=== PATIENT | male | born 1970 | race Asian ===

== ENCOUNTER 2024-02-03 00:26 | Inpatient (IN) | payer OTHER, SELFPAY ==
[2024-02-03] VITALS (19 sets, daily range): BP systolic 91–178; BP diastolic 43–81; PULSE 74–113; RESP 14–20; TEMP 36.2–37.2; O2SAT 85–100; BMI 30.2
--- NOTE | ~2024-02-03 | CT_ITS ---
CT of the Abdomen and Pelvis: Indication: Rectal pain, leukocytosis Technique: 2.5 mm axial scans were obtained through the abdomen and pelvis following intravenous adm inistration of 100 cc of Omnipaque 350. Dose reduction technique was used on this scan by utilizing a utomated exposure control and iterative reconstruction technique. The dose-length product (DLP) was 5 53.10 mGy-cm. Findings: Scans through the lung bases are unremarkable. The liver, spleen, pancreas, gallbladder, adrenals and kidneys are within normal limits. There are at herosclerotic calcifications of the aorta. No lymphadenopathy. No bowel obstruction or bowel wall thickening. There is no evidence to suggest acute appendicitis. Images through the pelvis were performed. Urinary bladder unremarkable. Prostate gland and seminal ve sicles are unremarkable. There is a large left-sided perirectal/perianal abscess extending into left ischial rectal fossa, wit h peripheral enhancing wall, measuring 8.0 x 5.9 x 8.0 cm (axial image 161, coronal image 93 for exam ple). There is extension of the abscess posterior inferiorly into the right perirectal/perianal regio n, with the right-sided small component measuring approximately 3.6 cm in diameter (axial image 177). Abscess appears to involve the wall of the distal rectum/anus, especially on the left side. Impression: Large perirectal/perianal abscess, as detailed above, more extensive on the left side, but with addit ional extension to the right side as well. Reviewed, dictated and finalized at [facility]. Impression: Large perirectal/perianal abscess, as detailed above, more extensive on the lef t side, but with additional extension to the right side as well.
--- NOTE | 2024-02-03 01:39 | PC.NURSE ---
edp sonia at bedside for rectal assessment
[2024-02-03 01:57] LABS: Basophils Absolute Auto 0.1 K/mm3 (0.0-0.1); Basophils Percent Auto 0.4 % (0.2-1.2); Eosinophils Percent Auto 0.1 % (0-4.4); Hematocrit 39.9 % (42.0-52.0); Hemoglobin 14.4 g/dL (14.0-18.0); Immature Granulocyte Absolute 0.14 K/mm3 (0.00-0.031); Immature Granulocyte Percent A 0.8 % (0-0.5); Lymphocytes Absolute Auto 1.09 K/mm3 (0.9-3.2); Mean Corpuscular HGB Conc 36.1 g/dl (32-36); Mean Corpuscular Hemoglobin 32.6 pg (26-34); Mean Corpuscular Volume 90.3 fl (80-100); Mean Platelet Volume 9.2 fl (7.4-10.4); Monocytes Absolute Auto 1.4 K/mm3 (0.1-0.6); Monocytes Percent Auto 7.7 % (2.6-8.5); Neutrophils Absolute Auto 15.4 K/mm3 (1.3-6.7); Platelet Count Result 319 k/mm3 (150-375); Red Blood Count 4.42 M/mm3 (4.6-6.20); Red Cell Distribution Width 11.3 % (11.5-14.5); White Blood Count 18.1 K/mm3 (4.5-10.0)
--- NOTE | 2024-02-03 02:00 | ED.GENADULT ---
HPI - General Adult General Chief complaint: Unspecified <DARYL Ward Last Filed: 02/05/24 09:15> Stated complaint: rectal pain <DARYL Ward Last Filed: 02/05/24 09:15> Time Seen by Provider: 02/03/24 01:33 <DARYL Ward Last Filed: 02/05/24 09:15> Source: patient <DARYL Ward Last Filed: 02/05/24 09:15> Mode of arrival: ambulatory <DARYL Ward Last Filed: 02/05/24 09:15> Limitations: no limitations <DARYL Ward Last Filed: 02/05/24 09:15> History of Present Illness HPI narrative: This is a 53 year old male that presents to the ER for rectal pain. Reports this has been ongoing over the last 5 days. He was seen at urgent care and started on medication for this without relief. Reports he believes he was started on antibiotics, but is unsure what antibiotic. Reports difficulty urinating and chills. Denies fever, vomiting, diarrhea, hematochezia, melena. <DARYL Ward Last Filed: 02/05/24 09:15> Related Data Home medications: Home Medications Medication Instructions Recorded Confirmed No Home Medications 02/03/24 02/03/24 <DARYL Ward Last Filed: 02/05/24 09:15> Allergies/adverse reactions: Allergies Allergy/AdvReac Type Severity Reaction Status Date / Time No Known Allergies Allergy Verified 02/03/24 11:04 <DARYL Ward Last Filed: 02/05/24 09:15> Review of Systems Review of Systems: CONSTITUTIONAL: Reports chills GASTROINTESTINAL: Denies abdominal pain, nausea, vomiting, or diarrhea. GENITOURINARY: Reports dysuria. Denies hematuria. <DARYL Ward Last Filed: 02/05/24 09:15> All systems reviewed & are unremarkable except as noted in HPI and below <DARYL Ward Last Filed: 02/05/24 09:15> [facility] Past Medical History Medical History: Medical History Alcohol abuse Tobacco abuse <Kasie Altamirano PA-C - Last Filed: 02/05/24 09:15> Surgical History Surgical History: Surgical History History of cardiac radiofrequency ablation (RFA) at age 16 <Kasie Altamirano PA-C - Last Filed: 02/05/24 09:15> Family History Family History: Family History Other Unknown family medical history <DARYL Ward Last Filed: 02/05/24 09:15> Social History Social History: Social History Smoking packs per day: 1 Smoking cigarettes per day: 20.0 Years smoked: 40 Smoking pack-years: 40.00 Smoking status: Current every day smoker Tobacco type: cigarettes Alcohol intake: current Drinks per week: 70 Substance use: never Substance use type: does not use Last use: 02/02/24 Do You Feel Safe in your Home?: Yes Lack of Transportation: No Lack of Food: Never True Current Housing: I Have Housing Concerned About Future Housing: No Difficulty Paying Gas/Electric Bills: No Difficulty Paying for Meds: No Currently Unemployed: No Education: Bachelor's Degree Difficulty w/ Childcare or Family Care: No Spiritual care concerns: No <DARYL Ward Last Filed: 02/05/24 09:15> Exam Narrative: GENERAL: Well-appearing, well-nourished, and in no acute distress. HEAD: Normocephalic, atraumatic. EYES: EOMI. CHEST: No respiratory distress. HEART: Regular rate ABDOMEN: Soft, nontender, nondistended, normal active bowel sounds. EXTREMITIES: Normal range of motion. No edema. SKIN: Warm, dry, no rash. NEURO: No focal deficits. Alert and oriented x3. PSYCH: Normal mood and affect RECTAL: No obvious fissures or hemorrhoids. No obvious fluctuance to suggest abscess. Induration of the buttock <Kasie Altamirano PA-C - Last Filed: 02/05/24 09:15> Course [facility]
[2024-02-03 02:09] LABS: Alanine Aminotransferase 13 U/L (6-50); Albumin Level 3.6 g/dL (3.5-5.1); Alkaline Phosphatase 91 U/L (38-126); Anion Gap 11 mmol/L (4-12); Aspartate Amino Transferase 15 U/L (17-59); Bilirubin,Total 0.7 mg/dL (0.2-1.3); Blood Urea Nitrogen 7 mg/dL (9-20); Calcium 8.7 mg/dL (8.4-10.2); Carbon Dioxide 21 mmol/L (22-30); Chloride 85 mmol/L (98-107); Estimated CRCL calculation 121 ml/min; Estimated Glomerular Filt Rate > 60; Glucose 118 mg/dL (65-110); Potassium 3.8 mmol/L (3.4-5.0); Sodium 117 mmol/L (137-145)
[2024-02-03] MEDS: SODIUM CHLORIDE 0.9% IV 1,000 ML 999 ML IV CONT (02:16)
[2024-02-03 02:25] LABS: Add Urine Microscopic? NO; Appearance Urine Clear (Clear); Bilirubin Urine Negative (Negative); Blood Urine Negative (Negative); Color Urine Yellow (Yellow); Glucose Urine UA Negative (Negative); Ketones Urine Negative (Negative); Leukocyte Esterase Ur Negative LEU/UL (Negative); Nitrate Urine Negative (Negative); Protein Urine Negative (Negative); Specific Grav Ur 1.007 (1.001-1.035); pH Urine 5.5 (5.0-9.0)
--- NOTE | 2024-02-03 03:20 | PC.NURSE ---
blood cultures x 2, rainbow sent to lab via tube station. Carlos label inside blue biobag with blood cultures.
[2024-02-03] MEDS: metroNIDAZOLE 500 MG/ISO 100ML 500 MG/100 ML BAG 100 MG IVPB (03:23)
[2024-02-03 03:38] LABS: Lactic Acid Reflex 1.1 mmol/L (0.7-2.0)
[2024-02-03 03:46] LABS: Anion Gap 13 mmol/L (4-12); Blood Urea Nitrogen 7 mg/dL (9-20); Calcium 8.3 mg/dL (8.4-10.2); Carbon Dioxide 21 mmol/L (22-30); Chloride 86 mmol/L (98-107); Estimated CRCL calculation 105 ml/min; Estimated Glomerular Filt Rate > 60; Glucose 97 mg/dL (65-110); Potassium 3.6 mmol/L (3.4-5.0); Sodium 120 mmol/L (137-145)
[2024-02-03 03:47] LABS: CRP 7.2 mg/dL (<1.0)
[2024-02-03] MEDS: VANCOMYCIN 1,500 MG/NS 500 ML 1,500 MG/500 ML BAG 250 MG IVPB (05:08)
[2024-02-03] MEDS: SODIUM CHLORIDE 0.9% IV 2,000 ML 999 ML IV CONT (05:10)
[2024-02-03 05:14] LABS: Erythrocyte Sedimentation Rate 24 mm/hr (0-20)
[2024-02-03] MEDS: HYDROmorphone HCL INJ (*CRX) 1 MG/ML SYR 0.5 MG IV PUSH (07:24)
[2024-02-03] MEDS: PIPERACILLN/TAZ 3.375GM/NS50ML 3.375 GM/50 ML BAG IVPB ×4 (07:27→23:29)
[2024-02-03] MEDS: IBUPROFEN IV 800 MG/200 ML 800 MG/200 ML BAG 400 MG IVPB (07:35)
--- NOTE | 2024-02-03 07:50 | ADMGEN ---
This patient, Jose Zavala, was admitted to [facility] Surg Room 314-02. Patient/family oriented to hospital policies and general routines including ID bracelet, bed and alarms, visiting hours, pain management, procedures, bathroom and other care routines, personal items, smoking policy, room service/diet, and visiting hours. Information on how to activate the Rapid Response Team has been discussed. Patient/Family are encouraged to report perceived risks to care and to ask questions if they do not understand what they are told or what they should do.
[2024-02-03] MEDS: LACTATED RINGERS 1,000 ML 125 ML IV CONT (08:34)
[2024-02-03 09:38] LABS: Anion Gap 9 mmol/L (4-12); Blood Urea Nitrogen 6 mg/dL (9-20); Calcium 7.7 mg/dL (8.4-10.2); Carbon Dioxide 20 mmol/L (22-30); Chloride 99 mmol/L (98-107); Estimated CRCL calculation 121 ml/min; Estimated Glomerular Filt Rate > 60; Glucose 108 mg/dL (65-110); Potassium 3.7 mmol/L (3.4-5.0); Sodium 128 mmol/L (137-145)
--- NOTE | 2024-02-03 10:35 | PC.NURSE ---
To OR per hospital bed for I&D of perirectal abscess.
--- NOTE | 2024-02-03 10:47 | WPDHPUPDATE1 ---
History and Physical Update Update Date/Time: 02/03/24 10:47 History and Physical has been reviewed, including an updated exam of the patient. There are NO changes in the patient's condition. Risks, benefits, and alternatives have been discussed and questions answered. Patient agrees to proceed with procedure.
--- NOTE | 2024-02-03 10:47 | PM.CNGS ---
Assessment and Plan Assessment and plan (1) Abscess, perirectal: Code(s): K61.1 - Rectal abscess Status: Acute Assessment and Plan: CT reviewed and showed a large perirectal abscess that is more extensive on the left but also extends to the right. CT also suggests that it may involve the wall of the distal rectum on the left. He continues to have a significant amount of rectal pain and pressure, and he is not having any spontaneous drainage. We would recommend proceeding with incision and drainage of perirectal abscess in the OR, which will be done by Dr. Newman today. Description of the procedure, risks, benefits, alternatives, and expected recovery were discussed with the patient. He agrees to proceed. Will keep him NPO with IV fluids, and continue IV antibiotics. (2) Sepsis: Code(s): A41.9 - Sepsis, unspecified organism Status: Acute Assessment and Plan: Presented with leukocytosis and tachycardia in the setting of a large perirectal abscess. Blood cultures pending. Lactic acid normal. Tachycardia resolved with fluid resuscitation. Will proceed to the OR for I&D today. Continue IV antibiotics. (3) Hyponatremia: Code(s): E87.1 - Hypo-osmolality and hyponatremia Status: Acute Assessment and Plan: Sodium 117 on admission and improving with IV fluids. Sodium up to 128 this morning. His hyponatremia could be related to his high water intake over the past few days. His chronic alcohol use could also play a role. No previous labs for comparison. Management per Hospitalist. (4) Alcohol abuse: Code(s): F10.10 - Alcohol abuse, uncomplicated Status: Acute Assessment and Plan: Daily alcohol use for many years. Reports 10 beers daily. Management per Hospitalist, [facility]. (5) Tobacco abuse: Code(s): Z72.0 - Tobacco use Status: Acute Assessment and Plan: Encouraged cessation. Plan I have discussed the patient's case and plan of care with Dr. Newman. Thank you for allowing us to see the patient in consultation and we will continue to follow along with you. History of Present Illness Consult details Consult date: 02/03/24 Reason for consult: other (Perirectal abscess) Requesting physician: Augusto Dinero MD Narrative: This is a 53-year-old man who presented to the ED overnight with complaints of rectal pain. He has a history of hemorrhoids and initially noticed mild anal itching last that he thought was related to possible hemorrhoids. Over the next few days, he developed rectal pain that progressively became worse and prompted evaluation in an urgent care over the weekend. He was started on an antibiotic and reports taking this as prescribed. He denies any relief of his symptoms, and actually felt the swelling and pain became worse over the next few days. He then decided to come into the ED last night due to his persistent symptoms. Labs showed a white blood cell count 16600, sodium 117, potassium 3.8, chloride 85, carbon dioxide 21, CRP 7.2. Lactic acid 1.1. CT scan of the abdomen and pelvis showed a large perirectal/perianal abscess measuring 8 x 5.9 x 8 cm, which is more extensive on the left side but with additional extension to the right side as well. He was admitted to the hospitalist service. He had received 3 L of normal saline since admission. Labs have been repeated and his sodium is up to 128 this morning. He was started on IV Zosyn and vancomycin. The patient denies any history of perirectal abscesses, inflammatory bowel disease, or previous colonoscopies. He denies any recent rectal drainage. His bowels have been moving normally up until the past few days he has felt constipated. His last bowel movement was 2-3 days ago. He reports flatus. He also endorses a poor appetite over the past few days and has been drinking a significant amount of water and Gatorade. He states he has had urinary hesitancy due to the rectal pain and pressure,
--- NOTE | 2024-02-03 11:57 | WPDANESEPPF ---
Anes - Initial Pre Proc Eval Procedure: Operation Date: 02/03/24 16:00 Proposed Procedures p Incision and Drainage Celine-Rectal Abscess - Saúl Newman DO Date/Time: 02/03/24 11:57 Surgeon: Melany Harrell DO Pre Op Diagnosis: PERIRECTAL ABSCESS Patient Data Age: 53 Gender: M Height: 1.68 m Weight: 85.1 kg Last Vital Signs Temp 97.7 F 02/03/24 11:06 Pulse 91 02/03/24 11:06 Resp 16 02/03/24 11:06 BP 118/59 L 02/03/24 11:06 Pulse Ox 98 02/03/24 11:06 O2 Del Method Room Air 02/03/24 08:00 Allergies Allergy/AdvReac Type Severity Reaction Status Date / Time No Known Allergies Allergy Verified 02/03/24 11:04 Home Medications Medication Instructions Recorded Confirmed Type No Home Medications 02/03/24 02/03/24 History Laboratory Tests 02/03/24 02/03/24 02/03/24 01:49 02:16 03:16 WBC 18.1 H K/mm3 (4.5-10.0) RBC 4.42 L M/mm3 (4.6-6.20) Hgb 14.4 g/dL (14.0-18.0) Hct 39.9 L % (42.0-52.0) MCV 90.3 fl (80-100) MCH 32.6 pg (26-34) MCHC 36.1 H g/dl (32-36) RDW 11.3 L % (11.5-14.5) Plt Count 319 k/mm3 (150-375) MPV 9.2 fl (7.4-10.4) Immature Gran % (Auto) 0.8 H % (0-0.5) Neut % (Auto) 85.0 H % (45.5-73.1) Lymph % (Auto) 6.0 L % (18.3-44.2) [place] % (Auto) 7.7 % (2.6-8.5) Eos % (Auto) 0.1 % (0-4.4) Baso % (Auto) 0.4 % (0.2-1.2) Lymph # (Auto) 1.09 K/mm3 (0.9-3.2) [place] # (Auto) 1.4 H K/mm3 (0.1-0.6) Eos # (Auto) 0.0 K/mm3 (0-0.3) Baso # (Auto) 0.1 K/mm3 (0.0-0.1) Abs Immat Gran (auto) 0.14 H K/mm3 (0.00-0.031) Absolute Neuts (auto) 15.4 H K/mm3 (1.3-6.7) Absolute Nucleated RBC 0.000 K/mm3 (0.0-0.012) Nucleated RBC % 0.0 % (0.0-0.2) ESR 24 H mm/hr (0-20) Sodium 117 L* mmol/L 120 L mmol/L (137-145) (137-145) Potassium 3.8 mmol/L 3.6 mmol/L (3.4-5.0) (3.4-5.0) Chloride 85 L mmol/L 86 L mmol/L (98-107) (98-107) Carbon Dioxide 21 L mmol/L 21 L mmol/L (22-30) (22-30) Anion Gap 11 mmol/L 13 H mmol/L (4-12) (4-12) BUN 7 L mg/dL 7 L mg/dL (9-20) (9-20) Creatinine 0.60 L mg/dL 0.70 mg/dL (0.7-1.3) (0.7-1.3) Estim Creat Clear Calc 121 ml/min 105 ml/min Estimated GFR > 60 > 60 (59 - ) (59 - ) Glucose 118 H mg/dL 97 mg/dL (65-110) (65-110) Lactic Acid 1.1 mmol/L (0.7-2.0) Calcium 8.7 mg/dL 8.3 L mg/dL (8.4-10.2) (8.4-10.2) Total Bilirubin 0.7 mg/dL (0.2-1.3) AST 15 L U/L (17-59) ALT 13 U/L (6-50) Alkaline Phosphatase 91 U/L (38-126) C-Reactive Protein 7.2 H mg/dL (<1.0) Total Protein 8.0 g/dL (6.3-8.2) Albumin 3.6 g/dL (3.5-5.1) Urine Color Yellow (Yellow) Urine Appearance Clear (Clear) Urine pH 5.5 (5.0-9.0) Ur Specific [place] 1.007 (1.001-1.035) Urine Protein Negative mg/dL (Negative) Urine Glucose (UA) Negative mg/dL (Negative) Urine Ketones Negative mg/dL (Negative) Ur Blood (Man) Negative (Negative) Urine Nitrate Negative (Negative) Urine Bilirubin Negative (Negative) Urine Urobilinogen 1.0 mg/dL (<2.0) Leukocyte Esterase Rfl Negative ANH/UL (Negative) 02/03/24 09:03 WBC RBC Hgb Hct MCV MCH MCHC RDW Plt Count MPV Immature Gran % (Auto) Neut % (Auto) Lymph % (Auto) [place] % (Auto) Eos % (Auto) Baso % (Auto) Lymph # (Auto) [place] # (Auto) Eos # (Auto) Baso # (Auto) Abs Immat Gran (auto)
[2024-02-03] MEDS: LACTATED RINGERS 1,000 ML 30 ML IV CONT (12:18)
[2024-02-03] MEDS: BUPIVACAINE/EPINEPHRINE 0.5% 10 ML VIAL 30 ML INFILTRATE (12:26)
--- NOTE | 2024-02-03 12:50 | W.PM.PROC2 ---
Procedure Note - Detailed Date of Procedure 02/03/24 Pre-op Diagnosis PERIRECTAL ABSCESS Post-op Diagnosis Same Procedure Performed Incision and drainage of complex perirectal abscess Surgeon Saúl Newman, DO Anesthesia General and Local (0.5% bupivacaine with epinephrine) Indications This is a 53-year-old man who presented with perirectal pain and swelling that started about 6 days ago. He stated that it felt like a hemorrhoid with just some itching and burning at 1st, but then began experiencing more swelling and pain. He denied any rectal drainage or bleeding. He denies any fevers. In the emergency department he was found to have a large left perirectal abscess extending to the right posterior region as well. He was admitted for further treatment and placed on broad-spectrum IV antibiotics. Discussions were made with the patient about treatment options and decision was made to proceed with incision and drainage of perirectal abscess. Findings The patient had a complex left perirectal abscess extending into the right posterior region as well. The abscess cavity was about 4 cm deep to the skin but there was a large cavity extending along the left perirectal region. There were multiple loculations around this area and also tracked posterior to the rectum along to the right posterior region. The abscess cavity tracked about 10-12 cm deep. Once the abscess cavity was completely drained, I then irrigated the area with sterile saline. I then placed a Bunny drain going from the right posterior region to the left side. I then also packed the abscess cavity with about 3 ft of 1 in iodoform gauze. Description of Procedure Procedure as well as risks, benefits, and alternatives were discussed with the patient. Written consent was obtained and placed in chart prior to procedure. Patient was brought back to surgical suite. He was placed supine on operating table. Time-out was done to confirm patient and procedure. He was then placed in dorsal lithotomy position. He was intubated by the anesthesia department. His perirectal area was prepped and draped in sterile fashion using Betadine prep. 0.5% bupivacaine with epinephrine was infiltrated locally over the area of left perirectal swelling. A 3 cm incision was then made in the left perirectal region about 4 cm from the anal verge using a 15 blade scalpel. Electrocautery was used for hemostasis. A curved hemostat was then used to gently dissect within the subcutaneous space until I reached the abscess cavity. The abscess cavity was then entered using blunt dissection with the curved hemostat. Copious amounts of purulence drainage came running out. Loculations were then broken up using blunt dissection with my finger and suction. The cavity was then probed for any further tracking. I identified an area tracking to the right posterior location. 0.5% bupivacaine with epinephrine was infiltrated over this area and then a 2 cm incision was made directly over this region using a 15 blade scalpel. Electrocautery was used for hemostasis. Blunt dissection with curved hemostat was then used to enter into the abscess cavity in this location. The 2 cavities met posterior to the rectum. Decision was made to place a [place] drain between the 2 abscess cavities. A [place] drain was placed and secured on each side using 3-0 nylon simple interrupted sutures. The abscess cavity was then irrigated with sterile saline. No further abnormalities were noted. The left abscess cavity was then packed with 1 in iodoform gauze. Fluff gauze, ABD pad, and mesh underwear were then applied. The patient was then awakened from anesthesia, extubated, and transferred to recovery. Estimated Blood Loss 20 Drains Yes (Bunny drain) Packing Yes (1 in iodoform gauze) Complications No immediate complications Condition Stable Disposition Floor [facility] Billing Surgery - Charge Forward: Surgery Billing
[2024-02-03] MEDS: LACTATED RINGERS 1,000 ML 100 ML IV CONT (14:10)
--- NOTE | 2024-02-03 14:10 | PC.NURSE ---
Returned to room per hospital bed from OR.
--- NOTE | 2024-02-03 16:44 | PM.IMHP ---
H&P: HPI History of Present Illness Date/Time: 02/03/24 16:44 Chief Complaint: rectal pain and swelling Narrative: 53 yo male with no significant past medical history presented to ED on account of rectal pain and swelling. Patient reported he was in his usual state of health until about 6 days presentation when he started having rectal pain accompanied with swelling, went to urgent care on Thursday and was given some antibiotics however symptoms continued unabated forcing him to present to ER for further evaluation and care. Denies any fever, no vomiting , had noted diarrhea daily days which has resolved since the past 2 days, no SOB, no chest pain. ER evaluation notable for WBC 18.1, Na 120, Cr 0.6, CT AP showed large perirectal/perianal abscess. Patient has already undergone I and D at the time of this recording. Review of Systems Review of Systems: Ulna systems reviewed and negative except as noted in HPI above. [facility] Past Medical History Medical History Alcohol abuse Tobacco abuse Surgical History Surgical History History of cardiac radiofrequency ablation (RFA) at age 16 Family History Family History Other Unknown family medical history Social History Social History Smoking packs per day: 1 Smoking cigarettes per day: 20.0 Years smoked: 40 Smoking pack-years: 40.00 Smoking status: Current every day smoker Tobacco type: cigarettes Alcohol intake: current Drinks per week: 70 Substance use: never Substance use type: does not use Last use: 02/02/24 Do You Feel Safe in your Home?: Yes Lack of Transportation: No Lack of Food: Never True Current Housing: I Have Housing Concerned About Future Housing: No Difficulty Paying Gas/Electric Bills: No Difficulty Paying for Meds: No Currently Unemployed: No Education: Bachelor's Degree Difficulty w/ Childcare or Family Care: No Spiritual care concerns: No Meds Home Medications and Allergies Home Medications Medication Instructions Recorded Confirmed Type No Home Medications 02/03/24 02/03/24 History Allergies Allergy/AdvReac Type Severity Reaction Status Date / Time No Known Allergies Allergy Verified 02/03/24 11:04 Vital Signs Vital Signs - 24 hr 02/03/24 00:30 02/03/24 03:53 02/03/24 07:31 Temperature 98.9 F 98.9 F 98.2 F Pulse Rate 113 H 91 97 Respiratory Rate 20 18 16 Blood Pressure 178/77 H 151/81 H 153/78 H Pulse Oximetry 98 100 97 Oxygen Delivery Room Air Oxygen Flow Rate 02/03/24 08:00 02/03/24 11:06 02/03/24 12:54 Temperature 97.7 F 98.4 F Pulse Rate 91 85 Respiratory Rate 16 15 Blood Pressure 118/59 L 91/51 L Pulse Oximetry 98 98 Oxygen Delivery Room Air Simple Face Mask Oxygen Flow Rate 8 02/03/24 13:14 02/03/24 13:10 02/03/24 12:06 Temperature 98.3 F Pulse Rate 85 81 93 Respiratory Rate 16 18 18 Blood Pressure 112/61 112/61 104/57 L Pulse Oximetry 100 100 85 L Oxygen Delivery Simple Face Mask Simple Face Mask Oxygen Flow Rate 8 8 02/03/24 13:25 02/03/24 13:40 02/03/24 13:55 Temperature Pulse Rate 81 83 77 Respiratory Rate 18 15 14 Blood Pressure 130/66 120/70 131/68 Pulse Oximetry 100 98 98 Oxygen Delivery Simple Face Mask Room Air Room Air Oxygen Flow Rate 8 02/03/24 14:10 02/03/24 14:04 02/03/24 14:19 Temperature 97.6 F 98.0 F Pulse Rate 74 80 Respiratory Rate 18 18 Blood Pressure 131/68 138/65 121/43 L Pulse Oximetry 98 91 Oxygen Delivery Oxygen Flow Rate 02/03/24 14:49 02/03/24 15:28 Temperature 98.0 F 98.0 F Pulse Rate 89 88 Respiratory Rate 18 18 Blood Pressure 121/44 L 121/44 L Pulse Oximetry 88 L 98 Oxygen Delivery Oxygen Flow Rate Exam Narrative: General:
[2024-02-03] MEDS: IBUPROFEN 600 MG TABLET PO (20:40)
[2024-02-03 23:47] LABS: Glucose Point of Care 112 mg/dl (65-105)
[2024-02-04] VITALS (8 sets, daily range): BP systolic 110–144; BP diastolic 62–79; PULSE 70–84; RESP 16–18; TEMP 36.2–36.8; O2SAT 97–100
[2024-02-04] MEDS: IBUPROFEN 600 MG TABLET PO ×2 (05:12→15:40)
[2024-02-04] MEDS: PIPERACILLN/TAZ 3.375GM/NS50ML 3.375 GM/50 ML BAG IVPB ×3 (05:14→17:36)
[2024-02-04 06:35] LABS: Basophils Percent Auto 0.2 % (0.2-1.2); Eosinophils Percent Auto 0.1 % (0-4.4); Hematocrit 36.3 % (42.0-52.0); Hemoglobin 12.3 g/dL (14.0-18.0); Immature Granulocyte Absolute 0.23 K/mm3 (0.00-0.031); Immature Granulocyte Percent A 1.4 % (0-0.5); Lymphocytes Absolute Auto 1.48 K/mm3 (0.9-3.2); Lymphocytes Percent Auto 9.2 % (18.3-44.2); Mean Corpuscular HGB Conc 33.9 g/dl (32-36); Mean Corpuscular Hemoglobin 32.4 pg (26-34); Mean Corpuscular Volume 95.5 fl (80-100); Mean Platelet Volume 9.6 fl (7.4-10.4); Monocytes Absolute Auto 1.1 K/mm3 (0.1-0.6); Neutrophils Absolute Auto 13.2 K/mm3 (1.3-6.7); Neutrophils Percent Auto 82.1 % (45.5-73.1); Platelet Count Result 274 k/mm3 (150-375); Red Cell Distribution Width 11.8 % (11.5-14.5); White Blood Count 16.1 K/mm3 (4.5-10.0)
[2024-02-04 06:45] LABS: Alanine Aminotransferase 10 U/L (6-50); Albumin Level 2.7 g/dL (3.5-5.1); Alkaline Phosphatase 63 U/L (38-126); Anion Gap 8 mmol/L (4-12); Aspartate Amino Transferase 16 U/L (17-59); Bilirubin,Total 0.3 mg/dL (0.2-1.3); Blood Urea Nitrogen 7 mg/dL (9-20); Calcium 8.1 mg/dL (8.4-10.2); Carbon Dioxide 23 mmol/L (22-30); Chloride 98 mmol/L (98-107); Estimated CRCL calculation 121 ml/min; Estimated Glomerular Filt Rate > 60; Glucose 101 mg/dL (65-110); Magnesium 2.3 mg/dL (1.6-2.3); Potassium 3.8 mmol/L (3.4-5.0); Sodium 129 mmol/L (137-145)
[2024-02-04 06:46] LABS: Lactic Acid Reflex 0.8 mmol/L (0.7-2.0)
--- NOTE | 2024-02-04 09:08 | P.PNAN_ITS ---
Anes - Prog Note Post-Op Date/Time: 02/04/24 09:08 Cardiovascular status: normal Respiratory status: normal Airway patency: baseline Mental status: baseline Post-Op hydration status: normal Vital Signs: Last Vital Signs Temp 97.6 F 02/04/24 07:49 Pulse 74 02/04/24 07:49 Resp 18 02/04/24 07:49 BP 141/76 H 02/04/24 07:49 Pulse Ox 99 02/04/24 07:49 O2 Del Method Room Air 02/03/24 20:00 O2 Flow Rate 8 02/03/24 13:25 Pain Score (VAS): 0/10 I/O: Intake & Output 02/03/24 02/04/24 02/04/24 23:59 07:59 15:59 Intake Total 1650 50 240 Output Total 900 Balance 1650 -850 240 Laboratory Tests 02/04/24 06:24 02/04/24 06:24 02/03/24 02/03/24 02/04/24 09:03 23:38 06:24 WBC 16.1 H RBC 3.80 L Hgb 12.3 L Hct 36.3 L MCV 95.5 D MCH 32.4 MCHC 33.9 RDW 11.8 Plt Count 274 MPV 9.6 Immature Gran % (Auto) 1.4 H Neut % (Auto) 82.1 H Lymph % (Auto) 9.2 L [place] % (Auto) 7.0 Eos % (Auto) 0.1 Baso % (Auto) 0.2 Lymph # (Auto) 1.48 [place] # (Auto) 1.1 H Eos # (Auto) 0.0 Baso # (Auto) 0.0 Abs Immat Gran (auto) 0.23 H Absolute Neuts (auto) 13.2 H Absolute Nucleated RBC 0.000 Nucleated RBC % 0.0 Sodium 128 L 129 L Potassium 3.7 3.8 Chloride 99 98 Carbon Dioxide 20 L 23 Anion Gap 9 8 BUN 6 L 7 L Creatinine 0.60 L 0.60 L Estim Creat Clear Calc 121 121 Estimated GFR > 60 > 60 Glucose 108 101 POC Capillary Glucose 112 H Lactic Acid 0.8 Calcium 7.7 L 8.1 L Magnesium 2.3 Total Bilirubin 0.3 AST 16 L ALT 10 Alkaline Phosphatase 63 Total Protein 6.0 L Albumin 2.7 L Microbiology 02/03/24 03:17 Blood Blood Culture - Preliminary 02/03/24 03:17 Blood Blood Culture - Preliminary Post-procedural complaints: none Patient Feedback: Patient satisfied with anesthetic care.
[2024-02-04] MEDS: ENOXAPARIN 40 MG/0.4 ML SYRINGE SUB-Q (09:55)
[2024-02-04] MEDS: THIAMINE HCL 200 MG/2 ML VIAL 100 MG IV PUSH (09:59)
[2024-02-04] MEDS: polyethylene glycoL 3350 17 GM POWD.PACK PO (10:00)
[2024-02-04 11:29] LABS: Glucose Point of Care 113 mg/dl (65-105)
--- NOTE | 2024-02-04 11:47 | PM.PNGS ---
Progress Note: A&P Assessment and Plan (1) Abscess, perirectal: Code(s): K61.1 - Rectal abscess Status: Acute Assessment and Plan: S/p I&D complex perirectal abscess. Pain and tenderness much improved. Continue gauze dressing changes as needed throughout the day. [place] drain in place. Continue IV antibiotics Possibly discharge home in the next 1-2 days if he continues to improve (2) Sepsis: Code(s): A41.9 - Sepsis, unspecified organism Status: Acute Assessment and Plan: Resolving s/p source control. Blood cx NGTD. Continue IV antibiotics. Plan I have discussed the patient's case and plan of care with Dr. Newman. Subjective Subjective Date/Time Seen: 02/04/24 11:47 Post Op day: 1 (Incision and drainage of complex perirectal abscess) Patient reports: feels better, pain is less, tolerating a regular diet and afebrile Interval history: Patient feels much better today. He slept well overnight. He reports his rectal pain has improved significantly and almost completely resolved. He has changed his gauze a few times overnight. Exam Const: General: comfortable and no acute distress Orientation/consciousness: patient oriented x3 GI: Other: Perirectal induration and tenderness significantly improved, packing removed from left incision, shey drain sutured into place, gauze dressing saturated with purulent drainage Objective Data Vital Signs Vital Signs: Vital Signs - 24 hr 02/03/24 12:54 02/03/24 13:14 02/03/24 13:10 Temperature 98.4 F Pulse Rate 85 85 81 Respiratory Rate 15 16 18 Blood Pressure 91/51 L 112/61 112/61 Pulse Oximetry 98 100 100 Oxygen Delivery Simple Face Mask Simple Face Mask Simple Face Mask Oxygen Flow Rate 8 8 8 02/03/24 12:06 02/03/24 13:25 02/03/24 13:40 Temperature 98.3 F Pulse Rate 93 81 83 Respiratory Rate 18 18 15 Blood Pressure 104/57 L 130/66 120/70 Pulse Oximetry 85 L 100 98 Oxygen Delivery Simple Face Mask Room Air Oxygen Flow Rate 8 02/03/24 13:55 02/03/24 14:10 02/03/24 14:04 Temperature 97.6 F Pulse Rate 77 74 Respiratory Rate 14 18 Blood Pressure 131/68 131/68 138/65 Pulse Oximetry 98 98 Oxygen Delivery Room Air Oxygen Flow Rate 02/03/24 14:19 02/03/24 14:49 02/03/24 15:28 Temperature 98.0 F 98.0 F 98.0 F Pulse Rate 80 89 88 Respiratory Rate 18 18 18 Blood Pressure 121/43 L 121/44 L 121/44 L Pulse Oximetry 91 88 L 98 Oxygen Delivery Oxygen Flow Rate 02/03/24 19:49 02/03/24 20:00 02/03/24 23:48 Temperature 98.2 F 97.1 F L Pulse Rate 90 90 84 Respiratory Rate 16 16 18 Blood Pressure 129/70 124/62 Pulse Oximetry 99 99 99 Oxygen Delivery Room Air Oxygen Flow Rate 02/04/24 00:00 02/04/24 04:55 02/04/24 04:00 Temperature 97.1 F L Pulse Rate 78 Respiratory Rate 16 Blood Pressure 124/62 134/66 134/66 Pulse Oximetry 98 Oxygen Delivery Oxygen Flow Rate 02/04/24 07:49 02/04/24 10:26 Temperature 97.6 F Pulse Rate 74 Respiratory Rate 18 Blood Pressure 141/76 H Pulse Oximetry 99 98 Oxygen Delivery Room Air Oxygen Flow Rate Intake/Output Intake/Output: Intake & Output 02/01/24 02/02/24 02/03/24 02/04/24 23:59 23:59 23:59 23:59 Intake Total 5850 290 Output Total 900 Balance 5850 -610 Meds/Results Medications: Active Medications Generic Name Dose Route Start Last Admin Trade Name Freq PRN Reason Stop Dose Admin Hydrocodone Bitart/Acetaminophen 1 tab 02/03/24 14:04 Hydrocodone/Acetaminophen (*Crx) 5-325 Mg Tablet PO Q4H PRN Pain Rated 4-6 Hydrocodone Bitart/Acetaminophen 1 tab 02/03/24 14:04 Hydrocodone/Acetaminophen (*Crx) 10-325 Mg Tablet PO Q4H PRN Pain Rated 7-10 Chlordiazepoxide HCl 25 mg 02/03/24 16:44 Chlordiazepoxide (*Crx) 25 Mg Capsule PO Q6H PRN Withdrawal Diphenhydramine HCl 25 mg 02/03/24 14:04 Diphenhydramine Hcl Inj 50 Mg/Ml Vial IV PUSH
--- NOTE | 2024-02-04 12:05 | PM.IMPN ---
Progress Note: A&P Assessment and Plan (1) Abscess, perirectal: Code(s): K61.1 - Rectal abscess Status: Acute (2) Alcohol abuse: Code(s): F10.10 - Alcohol abuse, uncomplicated Status: Acute (3) Hyponatremia: Code(s): E87.1 - Hypo-osmolality and hyponatremia Status: Acute (4) Tobacco abuse: Code(s): Z72.0 - Tobacco use Status: Acute Plan Perirectal abscess S/p I and D blood culture pending, continue Zosyn monitor closely Gen surgery following Hyponatremia Na 120, now 129 stop IVF monitor closely Alcohol abuse patient drinks 10 drinks per day [facility] protocol ordered careers counsellor about cessation tobacco use use half to 1 PPD careers counsellor about cessation DVT prophylaxis on Sq lovenox Subjective Date/time seen: 02/04/24 12:05 Interval history: comfortable at bedside Review of Systems Review of Systems: Ulna systems reviewed and negative except as noted in HPI above. Exam Narrative: General: alert and comfortable Eyes: EOMI, PERRLA ENNT External ears normal, Neck is supple, no masses, Respiratory systems: Clear to auscultation Cardiovascular S1, S2, normal rhythm, no murmur, rub, or gallop; no thrill or palpable murmurs on palpation. Gastrointestinal: soft, non-tender, and non-distended abdomen with no masses; surgical dressing on the perianal region soaked with blood. BS present Skin: no rash, lesions, ulcerations, subcutaneous nodules or induration Musculoskeletal: no abnormality and no tenderness, normal ROM Neurologic: Alert and oriented x3, non focal Mental Status Exam: normal affect Objective Data Vital Signs Vital Signs: Vital Signs - 24 hr 02/03/24 12:54 02/03/24 13:14 02/03/24 13:10 Temperature 98.4 F Pulse Rate 85 85 81 Respiratory Rate 15 16 18 Blood Pressure 91/51 L 112/61 112/61 Pulse Oximetry 98 100 100 Oxygen Delivery Simple Face Mask Simple Face Mask Simple Face Mask Oxygen Flow Rate 8 8 8 02/03/24 12:06 02/03/24 13:25 02/03/24 13:40 Temperature 98.3 F Pulse Rate 93 81 83 Respiratory Rate 18 18 15 Blood Pressure 104/57 L 130/66 120/70 Pulse Oximetry 85 L 100 98 Oxygen Delivery Simple Face Mask Room Air Oxygen Flow Rate 8 02/03/24 13:55 02/03/24 14:10 02/03/24 14:04 Temperature 97.6 F Pulse Rate 77 74 Respiratory Rate 14 18 Blood Pressure 131/68 131/68 138/65 Pulse Oximetry 98 98 Oxygen Delivery Room Air Oxygen Flow Rate 02/03/24 14:19 02/03/24 14:49 02/03/24 15:28 Temperature 98.0 F 98.0 F 98.0 F Pulse Rate 80 89 88 Respiratory Rate 18 18 18 Blood Pressure 121/43 L 121/44 L 121/44 L Pulse Oximetry 91 88 L 98 Oxygen Delivery Oxygen Flow Rate 02/03/24 19:49 02/03/24 20:00 02/03/24 23:48 Temperature 98.2 F 97.1 F L Pulse Rate 90 90 84 Respiratory Rate 16 16 18 Blood Pressure 129/70 124/62 Pulse Oximetry 99 99 99 Oxygen Delivery Room Air Oxygen Flow Rate 02/04/24 00:00 02/04/24 04:55 02/04/24 04:00 Temperature 97.1 F L Pulse Rate 78 Respiratory Rate 16 Blood Pressure 124/62 134/66 134/66 Pulse Oximetry 98 Oxygen Delivery Oxygen Flow Rate 02/04/24 07:49 02/04/24 10:26 Temperature 97.6 F Pulse Rate 74 Respiratory Rate 18 Blood Pressure 141/76 H Pulse Oximetry 99 98 Oxygen Delivery Room Air Oxygen Flow Rate Intake/Output Intake/Output: Intake & Output 02/01/24 02/02/24 02/03/24 02/04/24 23:59 23:59 23:59 23:59 Intake Total 5850 340 Output Total 900 Balance 5850 -560 Meds/Results Medications: Active Medications Generic Name Dose Route Start Last Admin Trade Name Freq PRN Reason Stop Dose Admin Hydrocodone Bitart/Acetaminophen 1 tab 02/03/24 14:04 Hydrocodone/Acetaminophen (*Crx) 5-325 Mg Tablet PO Q4H PRN Pain Rated 4-6 Hydrocodone Bitart/Acetaminophen 1 tab 02/03/24 14:04 Hydrocodone/Acetaminophen (*Crx) 10-325 Mg Tablet PO Q4H PRN Pain Rat
[2024-02-04 18:09] LABS: Glucose Point of Care 144 mg/dl (65-105)
[2024-02-05] MEDS: PIPERACILLN/TAZ 3.375GM/NS50ML 3.375 GM/50 ML BAG IVPB ×2 (00:20→05:47)
[2024-02-05 05:46] VITALS: BP 147/78; PULSE 79; RESP 18; TEMP 36.6; O2SAT 99
[2024-02-05 06:27] LABS: Basophils Absolute Auto 0.1 K/mm3 (0.0-0.1); Basophils Percent Auto 0.6 % (0.2-1.2); Eosinophils Absolute Auto 0.1 K/mm3 (0-0.3); Eosinophils Percent Auto 0.9 % (0-4.4); Hematocrit 36.5 % (42.0-52.0); Hemoglobin 12.5 g/dL (14.0-18.0); Immature Granulocyte Absolute 0.16 K/mm3 (0.00-0.031); Immature Granulocyte Percent A 1.6 % (0-0.5); Lymphocytes Absolute Auto 2.15 K/mm3 (0.9-3.2); Lymphocytes Percent Auto 22.1 % (18.3-44.2); Mean Corpuscular HGB Conc 34.2 g/dl (32-36); Mean Corpuscular Hemoglobin 32.1 pg (26-34); Mean Corpuscular Volume 93.6 fl (80-100); Mean Platelet Volume 9.4 fl (7.4-10.4); Monocytes Absolute Auto 0.9 K/mm3 (0.1-0.6); Monocytes Percent Auto 9.1 % (2.6-8.5); Neutrophils Absolute Auto 6.4 K/mm3 (1.3-6.7); Neutrophils Percent Auto 65.7 % (45.5-73.1); Platelet Count Result 301 k/mm3 (150-375); Red Cell Distribution Width 11.7 % (11.5-14.5); White Blood Count 9.7 K/mm3 (4.5-10.0)
[2024-02-05 06:38] LABS: Alanine Aminotransferase 15 U/L (6-50); Alkaline Phosphatase 65 U/L (38-126); Anion Gap 10 mmol/L (4-12); Aspartate Amino Transferase 21 U/L (17-59); Bilirubin,Total 0.3 mg/dL (0.2-1.3); Blood Urea Nitrogen 8 mg/dL (9-20); Calcium 8.3 mg/dL (8.4-10.2); Carbon Dioxide 22 mmol/L (22-30); Chloride 97 mmol/L (98-107); Estimated CRCL calculation 105 ml/min; Estimated Glomerular Filt Rate > 60; Glucose 83 mg/dL (65-110); Potassium 3.7 mmol/L (3.4-5.0); Sodium 129 mmol/L (137-145)
[2024-02-05] MEDS: THIAMINE HCL 200 MG/2 ML VIAL 100 MG IV PUSH (08:53)
[2024-02-05] MEDS: polyethylene glycoL 3350 17 GM POWD.PACK PO (08:53)
[2024-02-05] MEDS: ENOXAPARIN 40 MG/0.4 ML SYRINGE SUB-Q (08:53)
[2024-02-05] MEDS: IBUPROFEN 600 MG TABLET PO (08:59)
--- NOTE | 2024-02-05 12:02 | PM.PNGS ---
Progress Note: A&P Assessment and Plan (1) Abscess, perirectal: Code(s): K61.1 - Rectal abscess Status: Acute Assessment and Plan: WBC normalized. Doing well. OK to discharge today. F/u in office in 1 week. Subjective Subjective Date/Time Seen: 02/05/24 12:02 Interval history: Continues to improve. No fevers. Minimal drainage and pain. Exam Const: General: comfortable and no acute distress Orientation/consciousness: patient oriented x3 GI: Other: Perirectal induration and tenderness significantly improved, shey drain sutured into place, gauze dressing with minimal drainage Objective Data Vital Signs Vital Signs: Vital Signs - 24 hr 02/04/24 15:49 02/04/24 20:58 02/05/24 05:46 Temperature 36.4 C L 36.8 C 36.6 C Pulse Rate 70 84 79 Respiratory Rate 18 16 18 Blood Pressure 144/79 H 110/76 147/78 H Pulse Oximetry 100 97 99 Oxygen Delivery 02/05/24 08:50 Temperature Pulse Rate Respiratory Rate Blood Pressure Pulse Oximetry Oxygen Delivery Room Air Intake/Output Intake/Output: Intake & Output 02/02/24 02/03/24 02/04/24 02/05/24 23:59 23:59 23:59 23:59 Intake Total 5850 1286 800 Output Total 900 Balance 5850 386 800 Meds/Results Medications: Active Medications Generic Name Dose Route Start Last Admin Trade Name Freq PRN Reason Stop Dose Admin Hydrocodone Bitart/Acetaminophen 1 tab 02/03/24 14:04 Hydrocodone/Acetaminophen (*Crx) 5-325 Mg Tablet PO Q4H PRN Pain Rated 4-6 Hydrocodone Bitart/Acetaminophen 1 tab 02/03/24 14:04 Hydrocodone/Acetaminophen (*Crx) 10-325 Mg Tablet PO Q4H PRN Pain Rated 7-10 Chlordiazepoxide HCl 25 mg 02/03/24 16:44 Chlordiazepoxide (*Crx) 25 Mg Capsule PO Q6H PRN Withdrawal Diphenhydramine HCl 25 mg 02/03/24 14:04 Diphenhydramine Hcl Inj 50 Mg/Ml Vial IV PUSH Q6H PRN Itching Enoxaparin Sodium 40 mg 02/04/24 09:00 02/05/24 08:53 Enoxaparin 40 Mg/0.4 Ml Syringe SUB-Q 40 mg DAILY GANESH Administration Hydromorphone HCl 1 mg 02/03/24 14:04 Hydromorphone Hcl Inj (*Crx) 1 Mg/Ml Syr IV PUSH Q2H PRN Breakthrough Pain Rated 7-10 or NPO Hydromorphone HCl 0.5 mg 02/03/24 14:04 Hydromorphone Hcl Inj (*Crx) 1 Mg/Ml Syr IV PUSH Q2H PRN Breakthrough Pain Rated 4-6 or NPO Piperacillin/Tazobactam/Dextrose 3.375 gm in 50 mls @ 100 mls/hr 02/03/24 12:00 02/05/24 06:17 Zosyn 3.375 Gm/Ns 50 Ml IVPB Infused Q6HR GANESH Infusion Ibuprofen 800 mg in 200 mls @ 400 mls/hr 02/03/24 14:04 Caldolor 800 Mg/200 Ml IVPB Q6H PRN Breakthrough Pain Rated 1-3 or NPO Ibuprofen 600 mg 02/03/24 14:04 02/05/24 08:59 Ibuprofen 600 Mg Tablet PO 600 mg Q6H PRN Administration Pain Rated 1-3 Naloxone HCl 0.1 mg 02/03/24 14:04 Naloxone Hcl 0.4 Mg/Ml Vial IV PUSH Q2M PRN Opiate Reversal Ondansetron HCl 4 mg 02/03/24 14:04 Ondansetron Inj 4 Mg/2 Ml Vial IV PUSH Q4H PRN Nausea And Vomiting Polyethylene Glycol 17 gm 02/04/24 09:00 02/05/24 08:53 Polyethylene Glycol 3350 17 Gm Powd.Pack PO 17 gm QAM GANESH Administration Thiamine HCl 100 mg 02/04/24 09:00 02/05/24 08:53 Thiamine Hcl 200 Mg/2 Ml Vial IV PUSH 100 mg DAILY GANESH Administration Radiology Results: ITS Impressions Abdomen/Pelvis CT 02/03/24 05:47 Impression: Large perirectal/perianal abscess, as detailed above, more extensive on the left side, but with additional extension to the right side as well. Labs Labs: Laboratory Results - last 24 hr 02/04/24 02/05/24 18:07 06:18 WBC 9.7 RBC 3.90 L Hgb 12.5 L Hct 36.5 L MCV 93.6 MCH 32.1 MCHC 34.2 RDW 11.7 Plt Count 301 MPV 9.4 Immature Gran % (Auto) 1.6 H Neut % (Auto) 65.7 Lymph % (Auto) 22.1 Faulk % (Auto) 9.1 H Eos % (Auto) 0.9 Baso % (Auto) 0.6 Lymph # (Auto) 2.15 Faulk # (Auto)
--- NOTE | 2024-02-05 13:41 | PM.DS ---
DS: Admitting Diagnosis Discharge Date 02/05/24 Admitting Diagnosis perirectal abscess DS: Discharge Diagnosis Discharge Diagnosis (1) Abscess, perirectal: Code(s): K61.1 - Rectal abscess Status: Acute DS: Summary Hospital Course Hospital Course: 53 yo male with no significant past medical history presented to ED on account of rectal pain and swelling. Patient reported he was in his usual state of health until about 6 days presentation when he started having rectal pain accompanied with swelling, went to urgent care on Thursday and was given some antibiotics however symptoms continued unabated forcing him to present to ER for further evaluation and care. Denies any fever, no vomiting , had noted diarrhea daily days which has resolved since the past 2 days, no SOB, no chest pain. ER evaluation notable for WBC 18.1, Na 120, Cr 0.6, CT AP showed large perirectal/perianal abscess. Patient underwent I and D and wound dressing shnaged today Gen surgery recommended 10 more days of abx and outpatient follow up. Assessment and Plan (1) Abscess, perirectal: Code(s): K61.1 - Rectal abscess Status: Acute (2) Alcohol abuse: Code(s): F10.10 - Alcohol abuse, uncomplicated Status: Acute (3) Hyponatremia: Code(s): E87.1 - Hypo-osmolality and hyponatremia Status: Acute (4) Tobacco abuse: Code(s): Z72.0 - Tobacco use Status: Acute Plan Perirectal abscess S/p I and D blood culture negative so far Conitnue 10 more days of oral abx pe rgen surgery f/u with surgery as instructed Hyponatremia Na 120, now 129 discharged on oral Sodium chloride tablets x 14 days Alcohol abuse patient drinks 10 drinks per day [facility] protocol ordered counselled about cessation tobacco use use half to 1 PPD insurance counsel about cessation F/u with PCP in 3-5 days, f/u with gen surgery as instructed Time Spent with Patient Time attestation: Total time spent providing and/or coordinating discharge services: DS: Data Data Completed and Pending Labs on day of discharge: Labs from last 24 hours 02/05/24 02/04/24 06:18 18:07 WBC 9.7 RBC 3.90 L Hgb 12.5 L Hct 36.5 L MCV 93.6 MCH 32.1 MCHC 34.2 RDW 11.7 Plt Count 301 MPV 9.4 Immature Gran % (Auto) 1.6 H Neut % (Auto) 65.7 Lymph % (Auto) 22.1 Stokes % (Auto) 9.1 H Eos % (Auto) 0.9 Baso % (Auto) 0.6 Lymph # (Auto) 2.15 Stokes # (Auto) 0.9 H Eos # (Auto) 0.1 Baso # (Auto) 0.1 Abs Immat Gran (auto) 0.16 H Absolute Neuts (auto) 6.4 Absolute Nucleated RBC 0.000 Nucleated RBC % 0.0 Sodium 129 L Potassium 3.7 Chloride 97 L Carbon Dioxide 22 Anion Gap 10 BUN 8 L Creatinine 0.70 Estim Creat Clear Calc 105 Estimated GFR > 60 Glucose 83 POC Capillary Glucose 144 H Calcium 8.3 L Magnesium 2.0 Total Bilirubin 0.3 AST 21 ALT 15 Alkaline Phosphatase 65 Total Protein 7.0 Albumin 3.0 L Preliminary micro results at discharge 02/03/24 03:17 Blood Culture - Preliminary Blood 02/03/24 03:17 Blood Culture - Preliminary Blood Discharge Plan Discharge Attending physician on discharge: Ruddy Mckenna Consulting providers: Jeffrey Huerta; Saúl Newman Discharging Clinician: Ruddy Mckenna Anticipated Discharge Date/Time: 02/05/24 13:39 Patient Disposition: Home, Self-Care Activity: may shower and other - see discharge instructions Diet: regular Wound Care Instructions: other - see discharge instructions Discharge Instructions: Change 4x4 gauze/ABD pad daily while drain is in place. Call office for increasing swelling, redness, foul smelling drainage, or other problems with perirectal region. Patient Instructions: Antibiotic Form, How to Stop Smoking (DC), Pain Management (DC), Abscess Incision and Drainage (DC) Stand Alone Forms: General Discharge Information Follow-up/Referrals:
== END 2024-02-05 14:10 | disposition home or self-care (01) | DRG 394 ==
LOC: ANHED 04:57 → ANH3MEDSUR 06:13
PROVIDERS: Nurse Practitioner Family; Surgery; Admitting Provider Internal Medicine; Emergency Provider Physician Assistant; Visit Provider Internal Medicine
PROC: 0J990ZZ Drainage of Buttock Subcutaneous Tissue and Fascia, Open Approach (ICD-10-PCS; CPT 46040; principal; 2024-02-03 16:00)
DX: K61.1 Rectal abscess (principal); E87.1 Hypo-osmolality and hyponatremia; F10.10 Alcohol abuse, uncomplicated; F17.210 Nicotine dependence, cigarettes, uncomplicated
CPT/HCPCS: 36415; 74177; 80048; 80053; 81003; 82948; 83605; 83735; 85025; 85652; 86140; 87040; 96361; 96365; 96366; 96367; 99285; A9270; J0696; J1100; J1170; J1650; J1741; J1836; J1885; J2250; J2405; J2543; J2704; J3010; J3370; J3411; J7030; J7120; Q9967

== ENCOUNTER 2024-09-26 07:50 | Outpatient (CLI) | payer OTHER, SELFPAY ==
--- OUTSIDE RECORDS SUMMARY | 2024-09-26 07:54 | XMS_ITS | Referral Summary ---
Author Organization [address] Address [address] [place] [phone] Care Team Providers Care Hospice Home Health Aide Name Role Phone Saúl Newman DO Unavailable [phone] Margie Jin NP Primary Care Provider [phone] Joe Carballo MD Unavailable [phone] Encounters Date Type Department Care Team Description 08/23/2024 9:30 AM CDT Office Visit [facility] Surgery [address] [place] [address] Floor 5 [place] [address] Joe Carballo MD Anal fistula, complex, initial 06/30/2024 4:30 PM GROUNDWATER CONSULTANT - 06/30/2024 11:59 PM GROUNDWATER CONSULTANT Hospital Encounter [facility] [address] [place] [id number] Discharge Disposition: Discharge to home or self care from Last 3 Months Allergies No known active allergies Medications amLODIPine-jon zepriL (LOTREL 5-20) 5-20 mg per capsule Take 1 capsule by mouth daily 07/13/2024 Active atorvastatin (LIPITOR) 10 mg tablet Take 1 tablet (10 mg total) by mouth daily 07/13/2024 Active sodium, potassium & mag sulfates (Suprep Bowel Prep Kit) 17.5-3.13-1.6 gram recon solnIndications :Bowel Evacuation Drink first half of prep at 6:00 pm the night before procedure. Drink second half of prep 4 hours prior to leaving home for procedure. 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/23/2024 Immunizations Immunization Administration Dates Next Due Influenza, Quadrivalent, Loli l Culture-based MDCK, Preservative Free, Antibiotic Free, Intramuscular 04/19/2022 Influenza, Quadrivalent, Rec ombinant, Egg Free, Preservative Free, Intramuscular 03/15/2020 Social History Tobacco Use Types Packs/Day Years Used Date Smoking Tobacco: Every Day Cigarettes Smokeless Tobacco: Never Tobacco Cessation:Ready to Q uit: Not Asked; Counseling Given: Not Answered Sex and Gender Information Value Date Recorded Sex Assigned at Not on file Legal Sex Male 10:54 AM GROUNDWATER CONSULTANT Gender Identity Not on file Sexual Orientation Not on file Last Filed Vital Signs Vital Sign Reading Time Taken Comments Blood Pressure 154/81 08/23/2024 9:23 AM CDT Pulse 85 08/23/2024 9:23 AM CDT Temperature 36.1 C (97 F) 08/23/2024 9:23 AM CDT Respiratory Rate 16 08/23/2024 9:23 AM CDT Oxygen Saturation 97% 08/23/2024 9:23 AM CDT Inhaled Oxygen Concentration - - Weight 82.5 kg (181 lb 12.8 oz) 08/23/2024 9:23 AM CDT Height 170.2 cm (5' 7 ) 08/23/2024 9:23 AM CDT Body Mass Index 28.47 08/23/2024 9:23 AM CDT Plan of Treatment Upcoming Encounters Date Type Department Care Team (Latest Contact Info) Description 11/04/2024 7:30 AM CDT Hospital Encounter [facility] Surgery at [address] [address] Joe Carballo MD [address] [phone] [place] [address] 11/04/2024 7:30 AM CDT - 11/04/2024 8:40 AM CDT Surgery [facility] Surgery at [facility] [address] [place] [phone] Joe Craballo MD [address] [facility] [place] [phone] [place] [address] EXAM UNDER ANESTHESIA - RECTUM Scheduled Procedures Name Priority Associated Diagnoses Date/Ti me EXAM UNDER ANESTHESIA - RECTUM Anal fistula 11/04/2024 7:30 AM CDT PLACEMENT SETON Anal fistula 11/04/2024 7:30 AM CDT ANAL FISTULOTOMY Anal fistula 11/04/2024 7:30 AM CDT COLONOSCOPY Anal fistula 11/04/2024 7:30 AM CDT Procedures Procedure Name Priority Date/Time Associated Diagnosis Comments CT BODY OUTSIDE REFERENCE Routine 06/30/2024 4:30 PM GROUNDWATER CONSULTANT from Last 3 Months Results * CT Body Outside Reference (06/30/2024 4:30 PM GROUNDWATER CONSULTANT) Impressions [facility] - 06/30/2024 4:30 PM GROUNDWATER CONSULTANT These images are for Reference purposes only and have not been reviewed by [facility]. There will be no report generated by a [facility] Radiologist. Narrative [facility] - 06/30/2024 4:30 PM GROUNDWATER CONSULTANT EXAMINATION: Images For Reference Purposes Only us Joe Carballo MD IMG CT PROCEDURES Final Result [facility] from Last 3 Months Insurance [facility] [employer] PL[employer] PLUS Care Teams Hospice Home Health Aide Relationship Specialty Start Date End Date Margie Jin NP [address] [place] [address] PCP - General Family Medicine 05/27/24 Saúl Newman DO [address] [place] [address] Referring Physician Surgery 05/27/24 Joe Carballo MD [address] [phone] [place] [address] Surgeon Colon and Rectal Surgery 08/23/24
--- OUTSIDE RECORDS SUMMARY | 2024-09-26 07:54 | XMS_ITS | Clinical Summary ---
Author Organization [address] Address [address] [place] [phone] Care Team Providers Care Loan Auditor Name Role Phone Saúl Newman DO Unavailable [phone] Margie Jin NP Primary Care Provider [phone] Joe Carballo MD Unavailable [phone] Allergies No known active allergies Medications amLODIPine-jon [...] Noted Date Diagnosed Date Anal fistula 08/23/2024 Encounters Date Type Department Care Team Description 08/23/2024 9:30 AM CDT Office Visit [facility] Surgery [address] [place] [address] Floor 5 [place] [address] Joe Carballo MD Anal fistula, complex, initial 06/30/2024 4:30 PM RESOURCES REPRESENTATIVE - 06/30/2024 11:59 PM RESOURCES REPRESENTATIVE Hospital Encounter [facility] [address] [place] [address] Discharge Disposition: Discharge to home or self care from Last 3 Months Immunizations Immunization Administration Dates Next Due Influenza, Quadrivalent, Loli l Culture-based MDCK, Preservative Free, Antibiotic Free, Intramuscular 04/19/2022 Influenza, Quadrivalent, Rec ombinant, Egg Free, Preservative Free, Intramuscular 03/15/2020 Medical History Medical History Date Comments High blood pressure Social History Tobacco Use Types Packs/Day Years Used Date Smoking Tobacco: Every Day Cigarettes Smokeless Tobacco: Never Tobacco Cessation:Ready to Q uit: Not Asked; Counseling Given: Not Answered Sex and Gender Information Value Date Recorded Sex Assigned at Not on file Legal Sex Male 10:54 AM RESOURCES REPRESENTATIVE Gender Identity Not on file Sexual Orientation Not on file Obstetrics History Last Filed Vital Signs Vital Sign Reading [...] Height 170.2 cm (5' 7 ) 08/23/2024 9:2 3 AM CDT Body Mass Index 28.47 08/23/2024 9:23 AM CDT Plan of Treatment Upcoming Encounters Date Type Department Care Team (Latest Contact Info) Description 11/04/2024 7:30 AM CDT Hospital Encounter [facility] Surgery at [address] [address] Joe Carballo MD [address] [phone] [place] [address] 11/04/2024 7:30 AM CDT - 11/04/2024 8:[address] [facility] Surgery at [facility] [address] [place] [address] [place] [address] Joe Carballo MD [address] [phone] [place] [address] EXAM UNDER ANESTHESIA - RECTUM Scheduled Procedures Name Priority Associated Diagnoses Date/Ti me EXAM UNDER ANESTHESIA - RECTUM Anal fistula 11/04/2024 7:30 AM CDT PLACEMENT SETON Anal fistula 11/04/2024 7:30 AM CDT ANAL FISTULOTOMY Anal fistula 11/04/2024 7:30 AM CDT COLONOSCOPY Anal fistula 11/04/2024 7:30 AM CDT Health Maintenance Due Date Last Done Comments Colon Cancer Screening-Colonoscopy 1968 Depression Screening 1968 Hepatitis C Screening 1968 Prostate Cancer Screening-PSA 1968 DTaP/Tdap/Td Vaccine (1 - Tdap) 1979 Hepatitis B Screening 1986 Regular Well Visit/Exam 18-64 1986 Pneumococcal vaccine <65 (1 of 2 - PCV) 1987 Zoster Vaccine (1 of 2) 2018 Covid-19 Vaccine (5 - 2023-2 5 season) 2024 04/19/2022, 10/10/2021, 03/29/2021, Additional history exists Influenza Vaccine (Season Ended) 2025 04/19/20 22, 03/15/2020 Procedures Procedure Name Priority Date/Time Associated Diagnosis Comments CT BODY OUTSIDE REFERENCE Routine 06/30/2024 4:30 PM RESOURCES REPRESENTATIVE from Last 3 Months Results * CT Body Outside Reference (06/30/2024 4:30 PM RESOURCES REPRESENTATIVE) Impressions [facility] - 06/30/2024 4:30 PM RESOURCES REPRESENTATIVE These images are for Reference purposes only and have not been reviewed by [facility]iology. There will be no report generated by a [facility] Radiologist. Narrative [facility] - 06/30/2024 4:30 PM RESOURCES REPRESENTATIVE EXAMINATION: Images For Reference Purposes Only us Joe Carballo MD IMG CT PROCEDURES Final Result [facility] from Last 3 Months Insurance [facility] PLUS [facility] PLUS Care Teams Loan Auditor Relationship Specialty Start Date End Date Margie Jin NP [address] [facility] [address] PCP - General Family Medicine 05/27/24 Saúl Newman DO [address] [place] [address] Referring Physician Surgery 05/27/24 Joe Carballo MD [address] [phone] [place] [address] Surgeon Colon and Rectal Surgery 08/23/24
--- OUTSIDE RECORDS SUMMARY | 2024-09-26 07:54 | XMS_ITS | Clinical Summary ---
Author Organization [facility] Address [address] [place] [address] Care Team Providers Care Wire Rope Sling Maker Name Role Phone Jay Amin Primary Care Provider Unavailabl e Source Comments [facility],non-owned Affiliates and Associated Physician Practices is amultiple site organization consisting of ambulatory clinics and hospital sitesin [place], [place], [place] and [place]. This disclosure is being madepursuant to the Care Everywhere program and may not contain all information available regarding this patient. 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 Gender Identity Not on file Sexual Orientation Not on file Plan of Treatment Health Maintenance Due Date Last Done Comments COLOGUARD (AGES 45-75) - COL ON CA SCREENING 1968 COLON MONITORING 1968 COLONOSCOPY - COLON CA SCREENING 1968 CT COLONOGRAPHY - COLON CA SCREENING 1968 Colorectal Cancer Screening 1968 FIT - COLON CA SCREENING 1968 FLEX SIG - COLON CA SCREENING 1968 LIPID TESTING 1968 HIV SCREENING 1983 HEPATITIS C SCREENING 06/19/1986 DTAP/TDAP/TD VACCINES (1 - Tdap) 1987 HEPATITIS B VACCINE (1 of 3 - 19+ 3-dose series) 1987 PNEUMOCOCCAL VACCINE 50+ (1 of 1 - PCV) 2018 ZOSTER VACCINE (1 of 2) 2018 COVID-19 VACCINE (2023-2 5 season) 2024 DEPRESSION SCREENING 06/01/2024 INFLUENZA VACCINE (Season Ended) 2025 HIB VACCINE Aged Out No longer eligi ble based on patient's age to complete this topic HPV VACCINE Aged Out No longer eligi ble based on patient's age to complete this topic MENINGOCOCCAL (Group B) VACC INE SHARED DECISION-MAKING Aged Out No longer eligibl e based on patient's age to complete this topic MENINGOCOCCAL GROUPS A/C/Y/W VACCINE Aged Out No longer eligible b ased on patient's age to complete this topic Insurance [facility] Care Teams Wire Rope Sling Maker Relationship Specialty Start Date End Date Jay Amin provider retired [id number] PCP - General 08/26/10
--- NOTE | 2024-09-28 20:46 | WPDHOMESLEEP ---
Sleep Study - Home Unattended Date of Study: 09/26/24 Ordering Provider: Margie Jin APRN Interpreting Provider: Maria L Toledo MD Home Sleep Study Type: Watch PAT Height: 1.68 m Weight: 82.554 kg Body Mass Index: 29.3 Neck Circumference (inches): 17 [place]: 13 Reason for Sleep Study Hypersomnolence Sleep History Jose Zavala is a 54-year-old man with a history of loud snoring, excessive daytime sleepiness, difficulty falling asleep and irregular breathing at night which wakes him. He has choking and gasping at night. He has difficulty breathing when he sleeps on his back. He does not awaken with a morning headache but he does awaken with a sore dry mouth. He does not have nocturnal heartburn. He does not wake at night to urinate. He does have hypertension. The patient is anxious about his sleep. He clenches and grinds his teeth at night. He does not kick his legs excessively or have a restless feeling in his legs at night. He does not awaken feeling refreshed. He is tired in the morning. He has an urge to fall asleep during the day and he feels drowsy while driving at times. He is more alert in the evening compared to the morning. He does not have muscle weakness with strong emotion, the feeling of paralysis on falling asleep or upon awakening or vivid dreamlike scenes upon falling asleep or upon awakening. He does not have dreams during daytime naps. He has moderate difficulty falling asleep. His sleep problems are significantly interfering with his daily functioning and they are significantly noticeable to other people. He is significantly worried about his sleep. He has an elevated score of 13 on his insomnia severity index consistent with subthreshold insomnia. Normal bedtime is 11:45 p.m., falling asleep within 45 minutes, spending 6 hours in bed, 5 hours sleeping. On his days off, bedtime is 2:00 a.m., taking 30 minutes to fall asleep. He spends 10 hours in bed and 9 hours sleeping. He feels much more restored on his days off. He does not take planned naps on his days off. he feels better in the evening compared to other times of day. Habits: Tobacco: 6-20 cigarettes per day Caffeine: none Alcohol: 3+ drinks on 5 nights per week. Recreational substances: none reported [facility] Past Medical History Medical History (Updated 09/28/24 @ 20:51 by Maria L Toledo MD) Rash of penis Unprotected sex Hemorrhoid Encounter for other specified surgical aftercare Encounter to establish care Tobacco abuse Alcohol abuse Abscess, perirectal Surgical History Surgical History Status post incision and drainage perirectal abscess 02/03/24 Dr. Saúl Newman History of cardiac radiofrequency ablation (RFA) at age 16 Family History Family History Other Unknown family medical history Social History Social History Smoking packs per day: 1 Smoking cigarettes per day: 20.0 Years smoked: 40 Smoking pack-years: 40.00 Smoking status: Current every day smoker Tobacco type: cigarettes Alcohol intake: current Drinks per week: 70 Substance use: never Substance use type: does not use Last use: 02/02/24 Do You Feel Safe in your Home?: Yes Lack of Transportation: No Lack of Food: Never True Current Housing: I Have Housing Concerned About Future Housing: No Difficulty Paying Gas/Electric Bills: No Difficulty Paying for Meds: No Currently Unemployed: No Education: Bachelor's Degree Difficulty w/ Childcare or Family Care: No Spiritual care concerns: No Medications Home Medications ?Medication ?Instructions ?Recorded ?Confirmed ?Type sildenafil 50 mg tablet 50 mg PO DAILY PRN sexual activity 03/15/24 07/22/24 Rx #30 tabs amlodipine 5 mg-benazepril 20 mg See Rx Instructions .Route 07/12/24 07/22/24 Rx capsule .COMPLEX #90 caps atorvastatin 10 mg tablet 10 mg PO DAILY #90 tabs 07/12/24 07/22/24 Rx Sleep Procedure The sleep study was completed using [employer] a technically adequate device with seven channels: peripheral arterial tone, actigraphy, body position, snore, respiratory movement, pulse oximetry, sleep staging, and heart rate. Prior to using the device, the patient received verbal and written instructions for its application and was provided with the [employer] desk phone number for additional telephonic instruction with 24-hour availability of qualified personnel to answer questions. Sleep Architecture The total recording time is 3 hrs, 19 min. The total sleep time is 3 hrs, 4 min. Sleep latency is 10 minutes. REM latency is 54 minutes. The patient had 2 episodes of waking. Sleep architecture shows no deep sleep, 69.0% light sleep, and 30.9% stage REM. The patient spent 33.2% of total sleep time in the supine position. Sleep efficiency was 92%. Respiratory Analysis The overall AHI (pAHI 3%:) is 61.5. The central AHI is 1.7. The AHI was 63.3 in NREM and 58.0 in REM sleep. The AHI was 67.2 in Supine and 59.2 in Non-supine sleep. Percent of Som Murray respirations is 0.0. Oximetry Data The oxygen desaturation index (DEMIAN 4%:) is 60.8. The mean saturation is 86%, and the lowest saturation is 67%. Time spent with saturation < 88% is 99.4 minutes. Snoring Profile Snoring average intensity is 42 dB. The patient snored above 45 decibels for 26.8 minutes, 14.5% of sleep time. Cardiac Profile The average pulse rate is 83 beats per minutes. The lowest pulse rate is 60 bpm. The highest pulse rate is 100 bpm. Cardiac Rhythm Analysis in Sleep did not detect atrial fibrillation. Assessment and Plan Assessment and Plan (1) Obstructive sleep apnea: Code(s): G47.33 - Obstructive sleep apnea (adult) (pediatric) Status: Acute Assessment and Plan: This home sleep test using WatchPat on 09/26/2024 shows a short evaluation time, 3 hours 4 minutes of total sleep time. A home sleep test needs to have 4 hours of sleep to score appropriately however his data is so overwhelmingly positive that the shorter length did not change the outcome. His overall apnea-hypopnea index using a 3% criteria is 61.5, the central apnea-hypopnea index is 1.7, he desaturated to 67% and spent 99.4 minutes, 53.9% of this test below 88% saturation. He has extremely severe obstructive sleep apnea with hypoxemia. His average oxygen saturation during the night is 86%, below normal, and may indicate lung disease such as COPD. Clinical correlation is advised. He had no deep sleep recorded which may reflect severe obstructive sleep apnea. He reports using an average of 3 alcoholic drinks most nights, and alcohol can decrease deep wave sleep. His sleep schedule shows that he is not getting enough sleep, an average of 5 hours of sleep on work days. Normal adults need 7-9 hours of sleep. He needs to have in-lab titration as soon as this can be arranged. He is not a candidate for auto PAP based on the severity of illness an baseline hypoxemia. He should not nap on the day of the study. He should have a sleep aid available to get to sleep and stay asleep during the study. I recommend Lunesta 2 mg to 3 mg. Patient normally drinks alcohol in the evenings which can worsen obstructive sleep apnea severity. He normally drinks 1-3 alcoholic beverages on 5-7 nights a week. Taking a sleep aid on the night of the titration will help him maintain sleep during the titration to obtain optimal study results for treatment. Data The data obtained during this sleep study is adequate for interpretation. Certification This sleep study has been reviewed by a board certified sleep medicine physician.
[2024-09-29 17:31] VITALS: BMI 29.3
== END 2024-09-28 12:37 | disposition home or self-care (01) ==
LOC: ANHCSM 07:50
PROVIDERS: PCP Nurse Practitioner Family; Visit Provider Nurse Practitioner Family
DX: G47.30 Sleep apnea, unspecified (principal); G47.33 Obstructive sleep apnea (adult) (pediatric)
CPT/HCPCS: 95800; 95806

== ENCOUNTER 2025-02-17 15:46 | Emergency (ER) | payer OTHER, SELFPAY ==
--- NOTE | ~2025-02-17 | US_ITS ---
EXAMINATION: US scrotum doppler DATE: 02/17/2025 18:59 INDICATION: Right testicular pain and swelling. TECHNIQUE: Grayscale and Doppler ultrasound images of the testes were obtained. COMPARISON: CT abdomen and pelvis 02/03/2024 FINDINGS: The right testis measures 3.3 x 2.5 x 2.4 cm. The left testis measures 3.5 x 1.9 x 2.4 cm. There is increased vascular flow in right testis relative to the left testis. The right epididymis demonstrates hypoechogenicity and increased vascularity. The left epididymis is normal with normal vascular flow. There is a moderate-sized loculated right hydrocele. IMPRESSION: 1. Right-sided epididymoorchitis. 2. Moderate-sized loculated right hydrocele. Reviewed, dictated and finalized at location E.
[2025-02-17 15:48] VITALS: BP 169/72; PULSE 99; RESP 16; TEMP 36.4; O2SAT 100
--- OUTSIDE RECORDS SUMMARY | 2025-02-17 15:49 | XMS_ITS | Clinical Summary ---
Author Organization [facility] Address [address] [place] [address] Care Team Providers Care Weaving Instructor Name Role Phone Jay Amin Primary Care Provider Unavailabl e Source Comments [facility],non-owned Affiliates and Associated Physician Practices is amultiple site organization consisting of ambulatory clinics and hospital sitesin [place], [place], [place] and [place]. This disclosure is being madepursuant to the Care Everywhere program and may not contain all information available regarding this patient. 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 [address] Care Teams Weaving Instructor Relationship Specialty Start Date End Date Jay Amin provider retired [id number] PCP - General 08/26/10
--- OUTSIDE RECORDS SUMMARY | 2025-02-17 15:49 | XMS_ITS | Clinical Summary ---
Author Organization [address] Address [address] [place] [id number] Care Team Providers Care Customer Assistant Name Role Phone Saúl Newman DO Unavailable [phone] Margie Jin NP Primary Care Provider Joe Carballo MD Unavailable [phone] Allergies No known active allergies Medications amLODIPine-jon zepriL (LOTREL 5-20) 5-20 mg per capsuleIndicati ons:hypertensio n Take 1 capsule by mouth firebrick layer before breakfast 5 Active atorvastatin (LIPITOR) 10 mg tabletIndicatio ns:hyperlipidem ia Take 1 tablet (10 mg total) by mouth nightly 5 Active acetaminophen (TYLENOL) 500 mg tablet Take 2 tablets (1,000 mg total) by mouth every 8 (eight) hours as needed for pain Alternate tylenol and ibuprofen for pain control. 30 tablet 5 Active ibuprofen (ADVIL,MOTRIN) 600 mg tablet Take 1 tablet (600 mg total) by mouth every 8 (eight) hours as needed for pain Alternate tylenol and ibuprofen as needed for pain control. 30 tablet 5 Active oxyCODONE (ROXICODONE) 5 mg immediate release tabletIndicatio ns:Pain Take 1 tablet (5 mg total) by mouth every 6 (six) hours as needed for pain (ok to take oxycodone if both tylenol and ibuprofen do not control pain. take stool softeners with opioid medication.) 10 tablet 5 Active docusate sodium (COLACE) 100 mg capsuleIndicati ons:constipatio n Take 1 capsule (100 mg total) by mouth 2 (two) times a day as needed for constipation with a glass of water; take as needed for constipation. 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 Encounters Date Type Department Care Team Description 12/27/2024 7:45 AM CDT Office Visit [facility] Medicine Surgery [address] [place] [address] Joe Carballo MD Anal fistula (Primary Dx) from Last 3 Months Immunizations Immunization Administration Dates Next Due Influenza, Quadrivalent, Loli l Culture-based MDCK, Preservative Free, Antibiotic Free, Intramuscular 04/19/2022 Influenza, Quadrivalent, Rec ombinant, Egg Free, Preservative Free, Intramuscular 03/15/2020 Surgical History Surgery Date Site/Laterality Comments ABCESS DRAINAGE 05/01/2024 - 05/31/2024 CARDIAC CATHETERIZATION 06/01/1990 - 05/31/1991 ANAL FISTULOTOMY 11/04/2024 Colonoscopy and exam under anesthesia with anal fistulotomy COLONOSCOPY 11/04/2024 Colonoscopy and exam under anesthesia with anal fistulotomy Medical History Medical History Date Comments High blood pressure Family History Medical History Relation Name Comments Anesthesia problems Neg Hx Social History Tobacco Use Types Packs/Day Years Used Date Smoking Tobacco: Every Day Cigarettes Smokeless Tobacco: Never Tobacco Cessation:Ready to Q uit: Not Asked; Counseling Given: Not Answered AUDIT-C Answer Date Recorded Q1: How often do you have a drink containing alcohol? 4 or more times a week 11/04/2024 Q2: How many drinks containi ng alcohol do you have on a typical day when you are drinking? 7 to 9 Q3: How often do you have si x or more drinks on one occasion? Never 11/04/2024 Personal Safety Answer Date Recorded Have you ever been in or are you currently in a harmful physical or emotional relationship or is someone making you feel afraid or unsafe? 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 Gender Identity Not on file Sexual Orientation Not on file Obstetrics History Last Filed Vital Signs Vital Sign Reading Time Taken Comments Blood Pressure 159/88 12/27/2024 7:27 AM CDT Pulse 89 12/27/2024 7:27 AM CDT Temperature 36.4 C (97.5 F) 12/27/2024 7:27 AM CDT Respiratory Rate 18 12/27/2024 7:27 AM CDT Oxygen Saturation 100% 12/27/2024 7:27 AM CDT Inhaled Oxygen Concentration - - Weight 80 kg (176 lb 6.4 oz) 12/27/2024 7:27 AM CDT Height 165.1 cm (5' 5) 12/27/2024 7:27 AM CDT Body Mass Index 29.35 12/27/2024 7:27 AM CDT Plan of Treatment Health Maintenance Due Date Last Done Comments Depression Screening 1968 Hepatitis C Screening 1968 Prostate Cancer Screening-PSA 1968 DTaP/Tdap/Td Vaccine (1 - Tdap) 1979 Hepatitis B Screening 1986 Regular Well Visit/Exam 18-64 1986 Pneumococcal vaccine <65 (1 of 2 - PCV) 1987 Zoster Vaccine (1 of 2) 2018 Covid-19 Vaccine (5 - 2024-2 6 season) 2025 04/19/2022, 10/10/2021, 03/29/2021, Additional history exists Influenza Vaccine (#1) 2025 04/19/2022, 2019 Colon Cancer Screening-Colonoscopy 11/04/20342024 Procedures Procedure Name Priority Date/Time Associated Diagnosis Comments COLONOSCOPY 11/04/2024 10:15 AM CDT from Last 3 Months or Most Recently Relevant to Health Maintenance Results * Colonoscopy (11/04/2024 10:15 AM CDT) Anatomical Region Laterality Modality Other Narrative Procedure Note Joe Carballo MD - 11/04/2024 10:15 AM CDT [facility] Patient Name: Jose Zavala Procedure Date: 11/04/2024 10:15 AM Date of : 1970 Admit Type: Outpatient Age: 54 Gender: Male Attending MD: Joe Carballo M.D. Room: [facility] 01 Note Status: Finalized Procedure: Colonoscopy Indications: Screening for colorectal malignant neoplasm Referring MD: Saúl Newman D.O. Providers: Joe Carballo M.D. Medicines: Propofol per Anesthesia Complications: No immediate complications. Estimated Blood Loss: Estimated blood loss: none. Procedure: Pre-Anesthesia Assessment: - After reviewing the risks and benefits, thepatient was deemed in satisfactory condition to undergo the procedure. - Immediately prior to administration ofmedications, the patient was re-assessed for adequacy to receive sedatives. The benefits, risks and alternatives of theprocedure and sedation were discussed and informed consentwas obtained. All questions were answered. Please referto the signed informed consent document in the medical record. The scope was passed under direct vision.The [id number] was introduced through the anusand advanced to the the cecum, identified byappendiceal orifice and ileocecal valve. The colonoscopy was performed without difficulty. The patient tolerated the procedure well. The quality of the bowel preparation was good. The bowel preparation usedwas SUPREP. Findings: The perianal and digital rectal examinations were normal. Two sessile polyps were found in the ascending colon. The polyps were2 to 3 mm in size. These polyps were removed with a hot snare.Resection and retrieval were complete. A 3 mm polyp was found in the descending colon. The polyp wassessile. The polyp was removed with a hot biopsy forceps. Resection andretrieval were complete. Two pedunculated polyps were found in the sigmoid colon. The polypswere 2 to 15 mm in size. These polyps were removed with a hot snare. Resection and retrieval were complete. The exam was otherwise without abnormality. Impression: - Two 2 to 3 mm polyps in the ascending colon,removed with a hot snare. Resected and retrieved. - One 3 mm polyp in the descending colon, removedwith a hot biopsy forceps. Resected and retrieved. - Two 2 to 15 mm polyps in the sigmoid colon,removed with a hot snare. Resected and retrieved. - The examination was otherwise normal. Recommendation: - Await pathology results. - Repeat colonoscopy in 3 years for surveillance. Attending Participation: I was present and participated during the entire procedure, including non-rubi portions. Electronically signed by Obinna Carballo Joe Carballo M.D. 11/04/2024 11:48:44 AM Number of Addenda: 0 Note Initiated On: 11/04/2024 10:15 AM Recognized by the [place] [employer] G[employer]intestinal End[employer] for promoting quality in endoscopy Joe Carballo MD ENDOSCOPY PROCEDURES Final Res ult from Last 3 Months or Most Recently Relevant to Health Maintenance Insurance [facility] PLUS [facility] PL[facility] Advance Directives For more information, please contact: [phone] * Full Code (Latest Code Status on File) Date Activated Date Inactivated Comments 11/04/2024 9:36 AM 11/04/2024 4:28 PM Care Teams Customer Assistant Relationship Specialty Start Date End Date Margie Jin NP [address] [place] [address] PCP - General Family Medicine 05/27/24 Saúl Newman DO [address] [place] [address] Referring Physician Surgery 05/27/24 Joe Carballo MD [phone] [place] [address] Surgeon Colon and Rectal Surgery 08/23/24
--- OUTSIDE RECORDS SUMMARY | 2025-02-17 17:54 | XMS_ITS | Clinical Summary ---
Author Organization [address] Address [address] [place] [id number] Care Team Providers Care Strawberry Grower Name Role Phone Saúl Newman DO Unavailable [phone] Margie Jin NP Primary Care Provider [phone] Joe Carballo MD Unavailable Allergies No known active allergies Medications amLODIPine-jon zepriL (LOTREL 5-20) 5-20 mg per capsuleIndicati ons:hypertensio n Take 1 capsule by mouth steel heater before breakfast 5 Active atorvastatin (LIPITOR) 10 [...] Description 12/27/2024 7:45 AM CDT Office Visit [facility] Medicine Surgery 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 Room: [facility] 01 Note Status: Finalized [...] The scope was passed under direct vision.The [id number] was introduced through the anusand advanced to [...] On: 11/04/2024 10:15 AM Recognized by the [place] [employer] G[employer]intestinal [employer] for promoting quality in endoscopy Joe Carballo MD ENDOSCOPY PROCEDURES Final Res ult from Last 3 Months or Most Recently Relevant to Health Maintenance Insurance [facility] PLUS [facility] [employer] Advance Directives For more information, please contact: [phone] * Full Code (Latest Code Status on File) Date Activated Date Inactivated Comments 11/04/2024 9:36 AM 11/04/2024 4:28 PM Care Teams Strawberry Grower Relationship Specialty Start Date End Date Margie Jin NP [address] [place] [address] PCP - General Family Medicine 05/27/24 Saúl Newman DO [address] [place] [address] Referring Physician Surgery 05/27/24 Joe Carballo MD [phone] [place] [address] Surgeon Colon and Rectal Surgery 08/23/24
[2025-02-17 18:06] LABS: Add Urine Microscopic? YES; Appearance Urine Clear (Clear); Glucose Urine UA Negative (Negative); Leukocyte Esterase Ur Trace LEU/UL (Negative); Nitrate Urine Negative (Negative); Non Pathogenic Casts 0-2; Specific Grav Ur 1.005 (1.001-1.035)
--- NOTE | 2025-02-17 18:19 | ED.MALEGU ---
HPI - Male Genitourinary General Chief complaint: Urogenital-Male Stated complaint: enlarged testicles Time Seen by Provider: 02/17/25 17:17 Source: patient and old records reviewed Mode of arrival: ambulatory Limitations: no limitations History of Present Illness HPI Narrative: Patient is a 54-year-old male who presents the ED with report of right-sided testicular swelling. Patient reports he underwent vasectomy [address] Swan. Has had intermittent swelling of his right testicle since then. States it had been about the size of an egg. Has had intermittent pain. Was started on levaquin by Urology 2 days ago. Had an ultrasound in the urology office yesterday, but has not heard the results of this yet. Reports today the swelling became worse, about to the size of a baseball. Denies fevers, redness, difficulty urinating, hematuria, penile drainage. Related Data Allergies Allergy/AdvReac Type Severity Reaction Status Date / Time No Known Allergies Allergy Verified 01/24/25 10:52 Review of Systems Review of Systems: All systems reviewed & are unremarkable except as noted in HPI. All systems reviewed & are unremarkable except as noted in HPI and below PMFSH Past Medical History Medical History Rash of penis Unprotected sex Hemorrhoid Encounter for other specified surgical aftercare Encounter to establish care Tobacco abuse Alcohol abuse Abscess, perirectal Surgical History Surgical History Status post incision and drainage perirectal abscess 02/03/24 Dr. Saúl Newman History of cardiac radiofrequency ablation (RFA) at age 16 Family History Family History Other Unknown family medical history Social History Social History Smoking packs per day: 1 Smoking cigarettes per day: 20.0 Years smoked: 40 Smoking pack-years: 40.00 Smoking status: Current every day smoker Tobacco type: cigarettes Alcohol intake: current Drinks per week: 70 Substance use: never Substance use type: does not use Last use: 02/02/24 Do You Feel Safe in your Home?: Yes Lack of Transportation: No Lack of Food: Never True Current Housing: I Have Housing Concerned About Future Housing: No Difficulty Paying Gas/Electric Bills: No Difficulty Paying for Meds: No Currently Unemployed: No Education: Bachelor's Degree Difficulty w/ Childcare or Family Care: No Spiritual care concerns: No Exam Narrative: GENERAL: Well appearing, well-nourished, non-toxic, in no acute distress. HEAD: Normocephalic, atraumatic. RESPIRATORY: Airway patent, respirations nonlabored. Clear to auscultation bilaterally, no rales, rhonchi, wheezing. CARDIOVASCULAR: Regular rate and rhythm without murmurs, rubs, or gallops. GENITAL: R scrotum is enlarged and indurated/firm. L testicle normal in size. No appreciable tenderness throughout scrotum/posterior testicles/inguinal regions. Penis unremarkable. No drainage. No warmth or erythema of scrotum. MUSCULOSKELETAL: Moves all extremities. No gross deformities. SKIN: Warm, dry, normal color. NEURO: A&O X3. Speech clear. PSYCHIATRIC: Appropriate mood and affect. Normal interaction. Course Vital Signs Vital signs: Vital Signs Temperature 97.6 F 02/17/25 15:48 Pulse Rate 99 02/17/25 15:48 Respiratory Rate 16 02/17/25 15:48 Blood Pressure 169/72 H 02/17/25 15:48 Pulse Oximetry 100 02/17/25 15:48 Oxygen Delivery Room Air 02/17/25 15:48 Temperature 97.6 F 02/17/25 15:48 Pulse Rate 99 02/17/25 15:48 Respiratory Rate 16 02/17/25 15:48 Blood Pressure 158/75 H 02/17/25 22:46 Pulse Oximetry 100 02/17/25 23:30 Oxygen Delivery Room Air 02/17/25 15:48 MDM - Male Genitourinary MDM Narrative Medical decision making narrative: Patient presented to ED with right-sided testicular swelling, history of vasectomy 2 weeks ago. Worsening swelling today. Vital signs stable upon arrival. Reportedly had ultrasound performed in urology office yesterday. Has been on levaquin for past 2 days. Discuss[address] case with Dr. Robles, urology, recommended to obtain blood work, repeat ultrasound today, give dose of Rocephin. Call back after ultrasound results. Laboratory studies with white blood cell count of 11. Stable H& H. CMP with chronic hyponatremia, consistent with previous records. Kidney function is stable. UA is clear, trace leuk esterase, no evidence of infection or blood. Scrotal ultrasound obtained and showing evidence of epididymo-orchitis. No abscess. Re-discussed case with Dr. Robles, urology, advised OK to d/c home to continue Levaquin, recommended ice, NSAIDs, scrotal support/elevation, rest. Recommended outpatient follow-up with urology. Advised to return for IV antibiotics if he develops worsening symptoms or fevers. Discussed these recommendations with patient. He is in agreement with plan. Feels comfortable going home. Discussed strict return precautions. Patient in agreement with plan. Discharged in stable condition. Medical Records Attestation: I reviewed the patient's medical records. Lab Data Attestation: I reviewed the patient's lab results. 02/17/25 18:28 02/17/25 18:28 Labs: Lab Results 02/17/25 02/17/25 Range/Units 17:49 18:28 WBC 11.0 H (4.5-10.0) K/mm3 RBC 4.25 L (4.6-6.20) M/mm3 Hgb 13.2 L (14.0-18.0) g/dL Hct 39.6 L (42.0-52.0) % MCV 93.2 (80-100) fl MCH 31.1 (26-34) pg MCHC 33.3 (32-36) g/dl RDW 12.1 (11.5-14.5) % Plt Count 271 (150-375) k/mm3 MPV 9.3 (7.4-10.4) fl Immature Gran % (Auto) 0.5 (0-0.5) % Neut % (Auto) 70.4 (45.5-73.1) % Lymph % (Auto) 18.2 L (18.3-44.2) % [place] % (Auto) 10.1 H (2.6-8.5) % Eos % (Auto) 0.4 (0-4.4) % Baso % (Auto) 0.4 (0.2-1.2) % Lymph # (Auto) 2.00 (0.9-3.2) K/mm3 [place] # (Auto) 1.1 H (0.1-0.6) K/mm3 Eos # (Auto) 0.0 (0-0.3) K/mm3 Baso # (Auto) 0.0 (0.0-0.1) K/mm3 Abs Immat Gran (auto) 0.05 H (0.00-0.031) K/mm3 Absolute Neuts (auto) 7.7 H (1.3-6.7) K/mm3 Absolute Nucleated RBC 0.000 (0.0-0.012) K/mm3 Nucleated RBC % 0.0 (0.0-0.2) % Sodium 129 L (137-145) mmol/L Potassium 3.8 (3.4-5.0) mmol/L Chloride 96 L (98-107) mmol/L Carbon Dioxide 24 (22-30) mmol/L Anion Gap 9 (4-12) mmol/L BUN 7 L (9-20) mg/dL Creatinine 0.71 (0.7-1.3) mg/dL Estim Creat Clear Calc 99 ml/min Estimated GFR > 60 (59 - ) Glucose 100 (65-110) mg/dL Calcium 8.4 (8.4-10.2) mg/dL Total Bilirubin 0.6 (0.2-1.3) mg/dL AST 28 (17-59) U/L ALT 18 (6-50) U/L Alkaline Phosphatase 95 (38-126) U/L Total Protein 8.1 (6.3-8.2) g/dL Albumin 4.1 (3.5-5.1) g/dL Urine Color Yellow (Yellow) Urine Appearance Clear (Clear) Urine pH 6.0 (5.0-9.0) Ur Specific [place] 1.005 (1.001-1.035) Urine Protein Negative (Negative) mg/dL Urine Glucose (UA) Negative (Negative) mg/dL Urine Ketones Negative (Negative) mg/dL Ur Blood (Man) Negative (Negative) Urine Nitrate Negative (Negative) Urine Bilirubin Negative (Negative) Urine Urobilinogen 0.2 (<2.0) mg/dL Leukocyte Esterase Rfl Trace H (Negative) ANH/UL Urine RBC 0-2 (0-2) /hpf Urine WBC 0-5 (0-3) /hpf Ur Squamous Epith Cells None seen (Few) /hpf Urine Bacteria None seen /hpf Urine Casts 0-2 Imaging Data Attestation: I personally reviewed and interpreted this imaging study as follows: Radiologist's impression: STAT RAD US Scrotum: Findings are suggestive of right-sided epididymis and orchitis. Discharge Plan Discharge Clinical Impression: Swelling of right testicle, Epididymitis, Orchitis Patient Disposition: Home Condition: Stable Instructions: Antibiotic Form, Epididymitis (ED), Epididymo-Orchitis (ED) Additional Instructions: Continue antibiotics as prescribed. Recommend frequent icing to scrotum, scrotal support/elevation, rest. Continue ibuprofen for pain and swelling. Follow-up with urology for further evaluation. Call office Thursday to determine if you need sooner follow-up appointment. Return to the ED if you experience worsening or severe pain or swelling, fevers, unable to keep down food or drink, or any other symptoms of concern. Patient Language: [place] Citizen Prescriptions: No Action sildenafil 50 mg tablet 50 mg PO DAILY PRN (Reason: sexual activity) Qty: 30 2RF Rx Instructions: administer 30 minutes to 4 hours before activity atorvastatin 10 mg tablet 10 mg PO DAILY Qty: 90 1RF amlodipine-benazepril 5-20 mg capsule See Rx Instructions .ROUTE .COMPLEX Qty: 90 0RF Dose Instruction: TAKE 1 CAPSULE BY MOUTH DAILY Rx Instructions: TAKE 1 CAPSULE BY MOUTH DAILY Follow-up/Referrals: Margie Jin APRN [Primary Care Provider, Internal Medicine] Time of Disposition: 23:45
[2025-02-17] MEDS: cefTRIAXone 1 GM in SODIUM CHLORIDE 0.9% IV 50 ML 100 ML IVPB (18:29)
[2025-02-17 18:36] LABS: Hematocrit 39.6 % (42.0-52.0); Hemoglobin 13.2 g/dL (14.0-18.0); Immature Granulocyte Percent A 0.5 % (0-0.5); Lymphocytes Absolute Auto 2.00 K/mm3 (0.9-3.2); Mean Corpuscular HGB Conc 33.3 g/dl (32-36); Mean Corpuscular Hemoglobin 31.1 pg (26-34); Mean Corpuscular Volume 93.2 fl (80-100); Nucleated Red Blood Cells Absolute Auto 0.000 K/mm3 (0.0-0.012); Nucleated Red Blood Cells Perc 0.0 % (0.0-0.2); Platelet Count Result 271 k/mm3 (150-375); Red Blood Count 4.25 M/mm3 (4.6-6.20); White Blood Count 11.0 K/mm3 (4.5-10.0)
[2025-02-17 18:51] LABS: Alanine Aminotransferase 18 U/L (6-50); Albumin Level 4.1 g/dL (3.5-5.1); Alkaline Phosphatase 95 U/L (38-126); Anion Gap 9 mmol/L (4-12); Aspartate Amino Transferase 28 U/L (17-59); Bilirubin,Total 0.6 mg/dL (0.2-1.3); Blood Urea Nitrogen 7 mg/dL (9-20); Calcium 8.4 mg/dL (8.4-10.2); Carbon Dioxide 24 mmol/L (22-30); Chloride 96 mmol/L (98-107); Estimated CRCL calculation 99 ml/min; Estimated Glomerular Filt Rate > 60; Glucose 100 mg/dL (65-110); Potassium 3.8 mmol/L (3.4-5.0); Sodium 129 mmol/L (137-145); Total Protein 8.1 g/dL (6.3-8.2)
[2025-02-17 22:46] VITALS: BP 158/75; O2SAT 99
[2025-02-17 23:15] VITALS: O2SAT 99
[2025-02-17 23:30] VITALS: O2SAT 100
== END 2025-02-17 23:50 | disposition home or self-care (01) ==
PROVIDERS: Emergency Provider Physician Assistant; PCP Nurse Practitioner Family
DX: N50.89 Other specified disorders of the male genital organs (principal); N45.1 Epididymitis; N45.2 Orchitis; F17.210 Nicotine dependence, cigarettes, uncomplicated
CPT/HCPCS: 36415; 76870; 80053; 81001; 85025; 93976; 96365; 99284; J0696